=== PATIENT | female | born 1995 | race Caucasian/White ===

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

== ENCOUNTER 2017-01-08 16:34 | Emergency (ER) | payer OTHER ==
[~2017-01-08] VITALS: Ht 157.4 cm; Wt 54.4 kg
[~2017-01-08 16:34] MED LIST changes: +PEPCID20 MG PO
[2017-01-08] MEDS ORDERED: AUGMENTIN 875875 MG PO (16:53)
[2017-01-08] MEDS ORDERED: Motrin,Rufen800 MG PO (16:53)
== END 2017-01-08 18:36 | disposition home or self-care (01) ==
LOC: ED 16:34
DX: K08.89 Other specified disorders of teeth and supporting structures (principal); F17.200 Nicotine dependence, unspecified, uncomplicated; Z79.899 Other long term (current) drug therapy

== ENCOUNTER 2017-03-09 22:28 | Emergency (ER) | payer OTHER ==
[~2017-03-09] VITALS: Ht 160 cm; Wt 54.4 kg
[~2017-03-09 22:28] MED LIST changes: +AUGMENTIN 875875 MG PO; +Motrin,Rufen800 MG PO
[2017-03-09] MEDS ORDERED: CLINDAMYCIN HC300 MG PO (23:36)
== END 2017-03-09 23:41 | disposition home or self-care (01) ==
LOC: ED 22:28
DX: K02.9 Dental caries, unspecified (principal); F41.9 Anxiety disorder, unspecified; K21.9 Gastro-esophageal reflux disease without esophagitis; F17.200 Nicotine dependence, unspecified, uncomplicated; Z79.899 Other long term (current) drug therapy

== ENCOUNTER 2017-03-30 20:15 | Emergency (ER) | payer OTHER ==
[~2017-03-30] VITALS: Ht 160 cm; Wt 54.4 kg
[~2017-03-30 20:15] MED LIST changes: +CLINDAMYCIN HC300 MG PO
[2017-03-30 21:08] LABS: BILIRUBIN NEGATIVE (NEGATIVE); BLOOD NEGATIVE (NEGATIVE); CLARITY CLOUDY (CLEAR); COLOR YELLOW (YELLOW); GLUCOSE NEGATIVE (NEGATIVE); KETONE NEGATIVE (NEGATIVE); LEUKO ESTERASE 1+ (NEGATIVE); NITRITE NEGATIVE (NEGATIVE); SPECIFIC GRAVITY 1.025 (1.005-1.030)
[2017-03-30 21:15] LABS: BACTERIA 2+; EPITHELIAL CELLS 51-100
[2017-03-30 21:29] LABS: WBC 31-40 wbc/hpf (0-5)
== END 2017-03-30 21:58 | disposition home or self-care (01) ==
LOC: ED 20:15
PROVIDERS: Student in an Organized Health Care Education/Training Program
DX: A59.9 Trichomoniasis, unspecified (principal); K21.9 Gastro-esophageal reflux disease without esophagitis; F17.200 Nicotine dependence, unspecified, uncomplicated; F10.10 Alcohol abuse, uncomplicated; Z79.899 Other long term (current) drug therapy

== ENCOUNTER 2017-12-25 14:53 | Emergency (ER) | payer SELFPAY ==
[~2017-12-25] VITALS: Ht 160 cm; Wt 56.7 kg
[2017-12-25] MEDS ORDERED: CEPHALEXIN500 M1 PO (15:17)
== END 2017-12-25 15:26 | disposition home or self-care (01) ==
LOC: ED 14:53
DX: S70.361A Insect bite (nonvenomous), right thigh, initial encounter (principal); N94.6 Dysmenorrhea, unspecified; K21.9 Gastro-esophageal reflux disease without esophagitis; W57.XXXA Bitten or stung by nonvenomous insect and other nonvenomous arthropods, initial encounter; Y93.89 Activity, other specified; Y92.89 Other specified places as the place of occurrence of the external cause; Y99.8 Other external cause status

== ENCOUNTER 2018-02-11 21:16 | Emergency (ER) | payer SELFPAY ==
[~2018-02-11] VITALS: Ht 157.4 cm; Wt 54.4 kg
[2018-02-11 22:26] LABS: BASO # 0.1 10*3/uL (0.0-0.1); BASO % 0.7 % (0.0-1.0); EOS # 0.3 10*3/uL (0.0-0.4); EOS % 2.2 % (1.0-4.0); HEMATOCRIT 42.9 % (37.0-47.0); HEMOGLOBIN 15.1 g/dl (12.0-16.0); LYMPH # 2.4 10*3/uL (1.3-4.4); LYMPH % 17.2 % (27.0-41.0); MEAN CORPUSCULAR HGB 29.9 pg (27.0-31.0); MEAN CORPUSCULAR HGB CONC 35.2 g/dl (33.0-37.0); MEAN PLATELET VOLUME 9.7 fl (9.6-12.3); MONO # 0.7 10*3/uL (0.1-1.0); MONO % 5.3 % (3.0-9.0); NEUT # 10.1 10*3/uL (2.3-7.9); NEUT % 74.4 % (47.0-73.0); PLATELET COUNT AUTOMATED 264 10*3/uL (130-400); RED BLOOD COUNT 5.05 10*6/uL (4.10-5.10); RED CELL DISTRI WIDTH 12.4 % (0-14.5); WHITE BLOOD COUNT 13.6 10*3/uL (4.8-10.8)
[2018-02-11 22:40] LABS: ALBUMIN 3.9 gm/dl (3.1-4.5); ALKALINE PHOSPHATASE 58 U/L (45-117); BUN 8 mg/dl (7-24); CHLORIDE 106 mmol/L (98-107); CREATININE 0.88 mg/dL (0.55-1.02); POTASSIUM 3.5 mmol/L (3.5-5.1); SGOT/AST 26 IU/L (3-35); SGPT/ALT 34 U/L (12-78); SODIUM 138 mmol/L (136-145); TOTAL PROTEIN 7.9 gm/dL (6.4-8.2)
== END 2018-02-11 23:05 ==
LOC: ED 21:16
PROVIDERS: Nurse Practitioner Family
DX: R06.02 Shortness of breath (principal); R05 Cough; J45.909 Unspecified asthma, uncomplicated; F17.200 Nicotine dependence, unspecified, uncomplicated; Z53.21 Procedure and treatment not carried out due to patient leaving prior to being seen by health care provider

== ENCOUNTER 2018-04-26 22:37 | Emergency (ER) | payer SELFPAY ==
[~2018-04-26] VITALS: Ht 157.4 cm; Wt 52.2 kg
[2018-04-26 23:00] LABS: BILIRUBIN NEGATIVE (NEGATIVE); BLOOD NEGATIVE (NEGATIVE); CLARITY SL CLOUDY (CLEAR); COLOR YELLOW (YELLOW); GLUCOSE NEGATIVE (NEGATIVE); KETONE NEGATIVE (NEGATIVE); LEUKO ESTERASE NEGATIVE (NEGATIVE); NITRITE NEGATIVE (NEGATIVE); PH 7.5 (5.0-9.0); UROBILINOGEN 0.2 E.U./dl (0.2-1.0)
[2018-04-26 23:09] LABS: BACTERIA TRACE; EPITHELIAL CELLS 15-20; WBC 0-2 wbc/hpf (0-5)
[2018-04-26 23:13] LABS: BASO # 0.1 10*3/uL (0.0-0.1); BASO % 1.2 % (0.0-1.0); EOS # 0.2 10*3/uL (0.0-0.4); EOS % 2.2 % (1.0-4.0); HEMATOCRIT 43.6 % (37.0-47.0); LYMPH # 3.2 10*3/uL (1.3-4.4); LYMPH % 37.3 % (27.0-41.0); MEAN CELL VOLUME 89.2 fl (81.0-99.0); MEAN CORPUSCULAR HGB 30.7 pg (27.0-31.0); MEAN CORPUSCULAR HGB CONC 34.4 g/dl (33.0-37.0); MEAN PLATELET VOLUME 9.3 fl (9.6-12.3); MONO # 0.5 10*3/uL (0.1-1.0); NEUT # 4.5 10*3/uL (2.3-7.9); NEUT % 52.9 % (47.0-73.0); PLATELET COUNT AUTOMATED 352 10*3/uL (130-400); RED BLOOD COUNT 4.89 10*6/uL (4.10-5.10); RED CELL DISTRI WIDTH 13.2 % (0-14.5); WHITE BLOOD COUNT 8.6 10*3/uL (4.8-10.8)
[2018-04-26 23:29] LABS: ALBUMIN 4.3 gm/dl (3.1-4.5); ALKALINE PHOSPHATASE 77 U/L (45-117); BUN 10 mg/dl (7-24); CHLORIDE 103 mmol/L (98-107); CREATININE 0.93 mg/dL (0.55-1.02); POTASSIUM 3.5 mmol/L (3.5-5.1); SGOT/AST 89 IU/L (3-35); SGPT/ALT 186 U/L (12-78); SODIUM 138 mmol/L (136-145); TOTAL PROTEIN 8.1 gm/dL (6.4-8.2)
[2018-04-26] MEDS ORDERED: CYCLOBENZAPRINE10 MG PO (23:48)
== END 2018-04-27 00:23 | disposition home or self-care (01) ==
LOC: ED 22:37
PROVIDERS: Student in an Organized Health Care Education/Training Program
DX: M54.6 Pain in thoracic spine (principal); M54.5 Low back pain; R10.9 Unspecified abdominal pain; R39.14 Feeling of incomplete bladder emptying; K21.9 Gastro-esophageal reflux disease without esophagitis; J45.909 Unspecified asthma, uncomplicated

== ENCOUNTER → 2019-04-05 | Outpatient (CLI) | payer OTHER ==
[~2019-04-05] MED LIST changes: +CYCLOBENZAPRINE10 MG PO
== END | disposition home or self-care (01) ==
LOC: US 13:47
DX: Z34.82 Encounter for supervision of other normal pregnancy, second trimester (principal); Z3A.15 15 weeks gestation of pregnancy

== ENCOUNTER 2019-04-19 14:29 | Emergency (ER) | payer OTHER ==
[~2019-04-19] VITALS: Ht 157.4 cm; Wt 59.0 kg
[2019-04-19 15:39] LABS: BASO # 0.1 10*3/uL (0.0-0.1); BASO % 0.9 % (0.0-1.0); EOS # 0.2 10*3/uL (0.0-0.4); EOS % 1.8 % (1.0-4.0); HEMOGLOBIN 12.1 g/dl (12.0-16.0); LYMPH # 2.9 10*3/uL (1.3-4.4); LYMPH % 27.1 % (27.0-41.0); MEAN CELL VOLUME 89.8 fl (81.0-99.0); MEAN CORPUSCULAR HGB 30.2 pg (27.0-31.0); MEAN CORPUSCULAR HGB CONC 33.6 g/dl (33.0-37.0); MEAN PLATELET VOLUME 9.2 fl (9.6-12.3); MONO # 0.6 10*3/uL (0.1-1.0); MONO % 5.6 % (3.0-9.0); NEUT # 6.8 10*3/uL (2.3-7.9); NEUT % 64.1 % (47.0-73.0); PLATELET COUNT AUTOMATED 312 10*3/uL (130-400); RED BLOOD COUNT 4.01 10*6/uL (4.10-5.10); RED CELL DISTRI WIDTH 13.3 % (0-14.5); WHITE BLOOD COUNT 10.6 10*3/uL (4.8-10.8)
[2019-04-19 16:02] LABS: ALBUMIN 3.3 gm/dl (3.1-4.5); ALKALINE PHOSPHATASE 55 U/L (45-117); BUN 8 mg/dl (7-24); CHLORIDE 108 mmol/L (98-107); CREATININE 0.71 mg/dL (0.55-1.02); LIPASE 138 U/L (73-393); POTASSIUM 3.2 mmol/L (3.5-5.1); SGOT/AST 45 IU/L (3-35); SGPT/ALT 74 U/L (12-78); SODIUM 140 mmol/L (136-145); TOTAL PROTEIN 7.1 gm/dL (6.4-8.2)
[2019-04-19 16:22] LABS: BILIRUBIN NEGATIVE (NEGATIVE); BLOOD NEGATIVE (NEGATIVE); CLARITY CLOUDY (CLEAR); COLOR YELLOW (YELLOW); GLUCOSE NEGATIVE (NEGATIVE); KETONE NEGATIVE (NEGATIVE); LEUKO ESTERASE 1+ (NEGATIVE); NITRITE NEGATIVE (NEGATIVE); SPECIFIC GRAVITY >= 1.030 (1.005-1.030); UROBILINOGEN 0.2 E.U./dl (0.2-1.0)
[2019-04-19 16:34] LABS: BACTERIA 2+; EPITHELIAL CELLS TNTC
[2019-04-19] MEDS ORDERED: KEFLEX500 M1 PO (16:40)
== END 2019-04-19 20:07 | disposition left against medical advice (07) ==
LOC: ED 14:29
PROVIDERS: Physician Assistant
DX: O23.92 Unspecified genitourinary tract infection in pregnancy, second trimester (principal); O26.892 Other specified pregnancy related conditions, second trimester; R19.7 Diarrhea, unspecified; O99.512 Diseases of the respiratory system complicating pregnancy, second trimester; J45.909 Unspecified asthma, uncomplicated; O99.332 Smoking (tobacco) complicating pregnancy, second trimester; Z3A.16 16 weeks gestation of pregnancy; Z79.899 Other long term (current) drug therapy

== ENCOUNTER → 2019-05-27 | Outpatient (CLI) | payer OTHER ==
[~2019-05-27] MED LIST changes: +KEFLEX500 M1 PO
== END | disposition home or self-care (01) ==
LOC: US 12:30 → LAB 12:34
DX: Z34.82 Encounter for supervision of other normal pregnancy, second trimester (principal); Z3A.19 19 weeks gestation of pregnancy

== ENCOUNTER 2019-08-24 00:14 | Emergency (ER) | payer OTHER ==
[~2019-08-24] VITALS: Ht 157.4 cm; Wt 69.4 kg
== END 2019-08-24 02:04 | disposition left against medical advice (07) ==
LOC: ED 00:14
DX: O62.9 Abnormality of forces of labor, unspecified (principal); O99.613 Diseases of the digestive system complicating pregnancy, third trimester; K21.9 Gastro-esophageal reflux disease without esophagitis; O99.343 Other mental disorders complicating pregnancy, third trimester; F41.9 Anxiety disorder, unspecified; O99.513 Diseases of the respiratory system complicating pregnancy, third trimester; J45.909 Unspecified asthma, uncomplicated; Z79.2 Long term (current) use of antibiotics; Z79.899 Other long term (current) drug therapy; Z3A.32 32 weeks gestation of pregnancy

== ENCOUNTER → 2021-02-12 | Outpatient (CLI) | payer OTHER | END | disposition home or self-care (01) | LOC: US 02-04 15:00 | PROVIDERS: ATTEND Nurse Practitioner Women's Health | DX: Z34.81 Encounter for supervision of other normal pregnancy, first trimester (principal); Z3A.10 10 weeks gestation of pregnancy ==

== ENCOUNTER → 2021-04-15 | Outpatient (CLI) | payer OTHER | END | disposition home or self-care (01) | LOC: COVID19 16:21 | PROVIDERS: ATTEND Podiatrist Foot & Ankle Surgery | DX: Z20.822 Contact with and (suspected) exposure to COVID-19 (principal) ==

== ENCOUNTER 2021-08-06 15:47 | Emergency (ER) | payer OTHER | END 2021-08-06 17:11 | disposition left against medical advice (07) | LOC: ED 15:47 | DX: O26.893 Other specified pregnancy related conditions, third trimester (principal); R10.2 Pelvic and perineal pain; L02.01 Cutaneous abscess of face; Z3A.36 36 weeks gestation of pregnancy ==

== ENCOUNTER 2021-08-10 13:11 | Emergency (ER) | payer OTHER ==
[~2021-08-10] VITALS: Ht 160 cm; Wt 72.6 kg
[2021-08-10] MEDS ORDERED: CEPHALEXIN500 M1 PO (13:41)
== END 2021-08-10 14:08 | disposition home or self-care (01) ==
LOC: ED 13:11
DX: O26.893 Other specified pregnancy related conditions, third trimester (principal); L02.01 Cutaneous abscess of face; F17.200 Nicotine dependence, unspecified, uncomplicated

== ENCOUNTER 2024-03-19 12:11 | Emergency (ER) | payer MEDICAID ==
[~2024-03-19] VITALS: Wt 54.4 kg
[2024-03-19] MEDS ORDERED: IOHEXOL 300 MG/ML 100 ML VIAL IV ONE (12:25)
[2024-03-19 12:43] LABS: BASO # 0.1 10*3/uL (0.0-0.1); BASO % 1.2 % (0.0-1.0); EOS # 0.2 10*3/uL (0.0-0.4); EOS % 2.7 % (1.0-4.0); HEMATOCRIT 35.3 % (37.0-47.0); MEAN CELL VOLUME 87.8 fl (81.0-99.0); MEAN CORPUSCULAR HGB 29.6 pg (27.0-31.0); MEAN CORPUSCULAR HGB CONC 33.7 g/dl (33.0-37.0); MONO # 0.5 10*3/uL (0.1-1.0); MONO % 6.3 % (3.0-9.0); NEUT # 4.7 10*3/uL (2.3-7.9); NEUT % 56.8 % (47.0-73.0); PLATELET COUNT AUTOMATED 293 10*3/uL (130-400); RED BLOOD COUNT 4.02 10*6/uL (4.10-5.10); RED CELL DISTRI WIDTH 13.2 % (0-14.5); WHITE BLOOD COUNT 8.2 10*3/uL (4.8-10.8)
[2024-03-19 13:00] LABS: BILIRUBIN Negative (Negative); BLOOD Negative (Negative); CLARITY Turbid (Clear); COLOR Yellow (Yellow); GLUCOSE Negative (Negative); KETONE Negative (Negative); LEUKO ESTERASE 2+ (Negative); NITRITE Negative (Negative)
[2024-03-19 13:09] LABS: BACTERIA 3+; EPITHELIAL CELLS TNTC
[2024-03-19 13:15] LABS: URINE AMPHETAMINES Negative (1000ng/ml); URINE BARBITURATES Negative (200ng/ml); URINE BENZODIAZEPINES Negative (200ng/ml); URINE CANNABINOIDS (THC) Positive (50ng/ml); URINE COCAINE Negative (300ng/ml); URINE METHADONE Negative (300ng/ml); URINE OPIATES Negative (300ng/ml); URINE PHENCYCLIDINE Negative (25ng/ml)
[2024-03-19 13:20] LABS: BUN 5 mg/dl (9-23); CHLORIDE 108 mmol/L (98-107); POTASSIUM 3.4 mmol/L (3.4-5.1)
[2024-03-19] MEDS ORDERED: AMOX-CLAV 875-1 EACH PO (13:31)
== END 2024-03-19 13:44 | disposition home or self-care (01) ==
LOC: ED 12:11
PROVIDERS: Internal Medicine
DX: O23.41 Unspecified infection of urinary tract in pregnancy, first trimester (principal); N39.0 Urinary tract infection, site not specified; O26.891 Other specified pregnancy related conditions, first trimester; R51.9 Headache, unspecified; R42 Dizziness and giddiness; R10.2 Pelvic and perineal pain; O99.511 Diseases of the respiratory system complicating pregnancy, first trimester; J45.909 Unspecified asthma, uncomplicated; Z3A.00 Weeks of gestation of pregnancy not specified; W18.00XA Striking against unspecified object with subsequent fall, initial encounter; Y93.89 Activity, other specified; Y92.89 Other specified places as the place of occurrence of the external cause; Y99.8 Other external cause status

== ENCOUNTER 2024-05-20 18:32 | Emergency (ER) | payer MEDICAID ==
[~2024-05-20] VITALS: Ht 157.4 cm; Wt 55.3 kg
[~2024-05-20 18:32] MED LIST changes: +AMOX-CLAV 875-1 EACH PO
[2024-05-20 19:19] LABS: BILIRUBIN Negative (Negative); BLOOD Negative (Negative); CLARITY Clear (Clear); COLOR Yellow (Yellow); GLUCOSE Negative (Negative); KETONE Negative (Negative); LEUKO ESTERASE Negative (Negative); NITRITE Negative (Negative)
[2024-05-20 19:25] LABS: EPITHELIAL CELLS 16-20; WBC 0-2 wbc/hpf (0-5)
== END 2024-05-20 20:49 | disposition home or self-care (01) ==
LOC: ED 18:32
PROVIDERS: Nurse Practitioner Family
DX: O36.8120 Decreased fetal movements, second trimester, not applicable or unspecified (principal); O99.342 Other mental disorders complicating pregnancy, second trimester; K21.9 Gastro-esophageal reflux disease without esophagitis; J45.909 Unspecified asthma, uncomplicated; Z3A.17 17 weeks gestation of pregnancy

== ENCOUNTER 2024-07-23 13:51 | Emergency (ER) | payer OTHER ==
[~2024-07-23] VITALS: Ht 160 cm; Wt 62.2 kg
[2024-07-23] MEDS ORDERED: BUPRENORPHINE-1 EACH SL (14:33)
[2024-07-23] MEDS ORDERED: PRENATAL VITAM1 EAC3 PO (14:33)
== END 2024-07-23 17:27 | disposition left against medical advice (07) ==
LOC: ED 13:51
DX: O26.892 Other specified pregnancy related conditions, second trimester (principal); R09.A2 Foreign body sensation, throat; J45.909 Unspecified asthma, uncomplicated; Z3A.26 26 weeks gestation of pregnancy; Z79.899 Other long term (current) drug therapy

== ENCOUNTER 2025-03-25 09:48 | Emergency (ER) | payer OTHER ==
[~2025-03-25] VITALS: Ht 157.4 cm; Wt 54.4 kg
[~2025-03-25 09:48] MED LIST changes: +BUPRENORPHINE-1 EACH SL; +PRENATAL VITAM1 EAC3 PO
== END 2025-03-25 11:08 | disposition home or self-care (01) ==
LOC: ED 09:48
DX: J06.9 Acute upper respiratory infection, unspecified (principal); R07.89 Other chest pain; J45.909 Unspecified asthma, uncomplicated